=== PATIENT | female | born 1975 | race Caucasian/White ===

== ENCOUNTER 2024-12-23 22:17 | Emergency (ER) | payer MEDICAID, SELFPAY ==
[2024-12-23 22:17] VITALS: BMI 48.4
[2024-12-23 22:55] VITALS: BP 143/90; PULSE 76; RESP 22; TEMP 36.9; O2SAT 98
--- NOTE | 2024-12-23 22:57 | XR_ITS ---
Examination: Abdomen sonogram, Limited Date and time of exam: December 23, 2024 11:55 PM INDICATIONS: Right upper abdominal pain beginning 3 hours ago Technique: Real-time diehl scale transabdominal sonographic images of the upper abdomen obtained. Findings: Normal gallbladder Normal common bile duct 0.4 cm Pancreatic head 2.9 cm Liver 15.5 cm fatty infiltration Normal hepatopedal portal venous flow Patent IVC IMPRESSION: Normal gallbladder
--- NOTE | 2024-12-23 22:57 | PD.EDRME ---
Rapid Medical Screening Exam RME Arrival date/time: 12/23/24 22:17 Chief Complaint: Abdominal Pain Time Seen by Provider: 12/23/24 22:35 Vital signs: Vital Signs Temperature 98.5 F 12/23/24 22:55 Pulse Rate 76 12/23/24 22:55 Respiratory Rate 22 H 12/23/24 22:55 Blood Pressure 143/90 H 12/23/24 22:55 Pulse Oximetry (%) 98 12/23/24 22:55 Oxygen Delivery Method Room Air 12/23/24 22:55 E Narrative: RUQ pain, nausea x2 hours
--- NOTE | 2024-12-23 23:10 | XR_ITS ---
Examination: CT abdomen and pelvis without contrast. Coronal 3-D reconstructions. Sagittal 2-D reconstructions. Date and time of exam:December 24, 2024 0204 hours INDICATIONS: Onset of flank pain today CTDI: vol (mGy): 18.2 DLP: (mGycm): 1146 Technique: Axial images of the abdomen have been obtained, 3 mm slice thickness Intravenous contrast material has not been administered. Low dose protocols were performed. One or more of the following dose reduction techniques were used; automated exposure control, adjustment of the mA and/or KV according to patient size, use of iterative reconstruction technique. Findings: Fatty liver No gallstones Spleen not enlarged No pancreatic or adrenal mass No renal or ureteral calculi, no hydronephrosis Inflamed terminal ileal segment Normal appendix No abdominal or pelvic abscess Anteverted uterus Urinary bladder intact IMPRESSION: Inflamed terminal ileal segment, differential would include enteritis such as Crohn's disease
[2024-12-23 23:30] LABS: Basophils % (Auto) 0 % (0-2.5); Eosinophils # (Auto) 0.1 Thou/mm3 (0.0-0.5); Eosinophils % (Auto) 1 % (0-10); Hematocrit 30.4 % (36.0-46.0); Hemoglobin 10.1 g/dL (12.0-16.0); Immature Granulocytes % (Auto) 0 % (0-0); Immature Granulocytes Auto 0.03 Thou/mm3 (0.00-0.00); Lymphocytes # (Auto) 3.4 Thou/mm3 (1.0-4.8); Lymphocytes % (Auto) 26 % (10-50); Mean Corpuscular HGB Conc 33.2 g/dl (31.0-37.0); Mean Corpuscular Hemoglobin 25.6 pg (25.0-35.0); Mean Corpuscular Volume 77 fL (80-100); Monocytes % (Auto) 7 % (0-12); Neutrophils # (Auto) 8.3 Thou/mm3 (1.8-7.7); Neutrophils % (Auto) 65 % (37-80); Nucleated Red Blood Cell % 0 /100 WBC (0); Platelet Count 296 Thou/mm3 (140-440); RDW Standard Deviation 48.3 fL (36.4-46.3); Red Blood Count 3.94 Miln/mm3 (4.00-5.20); White Blood Count 12.8 Thou/mm3 (3.6-11.0)
[2024-12-23] MEDS: HYDROcodone/APAP 5/325 TABLET 1 TAB PO (23:32)
[2024-12-23] MEDS: ONDANSETRON ODT 4 MG TABRAP PO (23:33)
[2024-12-23 23:53] LABS: Collection Type, Urine Clean Catch
[2024-12-24 00:04] LABS: Bilirubin,Urine Negative (Negative); Blood,Urine Negative (Negative); Clarity,Urine Clear (Clear/Hazy); Glucose, Urine Negative (Negative); Ketones,Urine Negative (Negative); Leukocyte Esterase,Urine Negative (Negative); Nitrite,Urine Negative (Negative); PH,Urine 5.5 (5.0-7.0); Protein,Urine Negative (Neg - Trace); RBC,Urine 2 /hpf (0-3); Specific Gravity,Urine 1.023 (1.001-1.035); Squamous Epithelial Cell,Urine 3 /hpf (0-5); Urobilinogen,Urine Negative mg/dL (0.0-1.0); WBC,Urine 1 /hpf (0-5)
[2024-12-24 00:05] LABS: Color,Urine Yellow (Lt Yel-Yel)
[2024-12-24 00:11] LABS: HCG Qualitative,Urine Negative
[2024-12-24 00:23] LABS: Alanine Aminotransferase 68 U/L (10-49); Albumin, Serum 3.8 gm/dL (3.5-5.0); Albumin/Globulin Ratio 1.4 (1.2-2.2); Alkaline Phosphatase 54 U/L (46-116); Anion Gap 11 (7-16); Aspartate Amino Transferase 43 U/L (0-34); BUN/Creatinine Ratio 23 Ratio (12-20); Bilirubin,Total 0.3 mg/dL (0.3-1.2); Blood Urea Nitrogen 18 mg/dL (9-23); Calcium 8.6 mg/dL (8.3-10.6); Calcium (Corrected) 8.8 mg/dL (8.5-10.1); Carbon Dioxide 28.5 mMol/L (20.0-31.0); Chloride 105 mMol/L (98-107); Creatinine (Component) 0.8 mg/dL (0.6-1.3); Estimated Creatinine Clearance 94.3 mL/min (>60); Globulin 2.7 gm/dL (2.3-3.5); Glucose 113 mg/dL (74-106); Lipase 42 U/L (12-53); Osmolality,Calculated 289 (275-295); Sodium 144 mMol/L (136-145); Total Protein 6.5 gm/dL (5.7-8.2); eGFR > 60 See Note
--- NOTE | 2024-12-24 01:02 | PRELIM_ITS ---
Right upper quadrant abdominal ultrasound. December 23, 2024 at 2355 hours Clinical history: Right upper quadrant pain x2 hours. Technique: Grayscale and color flow images of the right upper quadrant are provided. Hepatic and portal veins were also imaged with color flow images. Comparison: No prior study is available for comparison. Findings: The liver demonstrates heterogenous echotexture with increased echogenicity. No intrahepatic biliary ductal dilatation is demonstrated. The main portal vein measures 1.1 cm and demonstrates hepatopetal flow. No gallbladder calculus, wall thickening or pericholecystic fluid is demonstrated. Sonographic Toscano sign is negative as per the technologist's note. The common bile duct is normal in caliber at 4 mm. The pancreas is unremarkable to the extent visualized. The inferior vena cava is unremarkable to the extent visualized. The abdominal aorta is obscured by bowel gas artifact. Impression: No sonographic evidence of cholelithiasis, acute cholecystitis or biliary obstruction. Diffuse hepatic steatosis. Report Electronically Signed By: Joel Matthews 12/24/2024 1:01:37 AM [EST]
--- NOTE | 2024-12-24 03:29 | PRELIM_ITS ---
CT scan of the abdomen and pelvis without intravenous contrast (axial sections with sagittal and coronal reformats) December 24, 2024 0204 hours Clinical History: Right sided abd pain x2 hours No prior study is available for comparison. Findings: There is mild heterogeneous attenuation of the lower lungs. The liver, gallbladder, pancreas, spleen, kidneys and adrenals are unremarkable on this noncontrast study. No evidence of bowel dilatation. There is mesenteric fat stranding adjacent to the ileal loops in the right mid and lower abdomen.The appendix is within normal limits. The urinary bladder is not well distended. There is no free fluid or free air.There is no adenopathy. A small fat-containing umbilical hernia is present. The osseous structures are unremarkable. Impression: Mesenteric fat stranding adjacent to the ileal loops in the right mid and lower abdomen, nonspecific, in the appropriate clinical setting, mild ileitis cannot be excluded. Mild heterogeneous attenuation of the lower lungs, suggestive of small airways disease. Other findings as described above. Report Electronically Signed By: Anish Pablo 12/24/2024 3:28:43 AM [EST]
--- NOTE | 2024-12-24 05:17 | EDNOTE_ITS ---
ED Abdominal Pain RME/HPI General Chief Complaint: Abdominal Pain Stated complaint: RLQ PAIN Time seen by provider: 12/23/24 22:35 Arrival date/time: 12/23/24 22:17 Source: patient, RN notes reviewed and old records reviewed Mode of arrival: ambulatory Limitations: no limitations RME / HPI RME / HPI narrative: 49yof presents to ED for RUQ abdominal pain x2 hours. Patient c/o nausea but no vomiting. No fever, sob, cp, diarrhea or urinary symptoms reported. 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 Home Medications ?Medication ?Instructions ?Recorded ?Confirmed cetirizine 10 mg tablet 10 mg PO QDAY PRN Allergic S ymptoms 09/01/21 08/25/23 amoxicillin 500 mg capsule 500 mg PO BID 08/25/2308/09 linaclotide 145 mcg capsule 145 mcg PO QAM 08/25/23 (Linzess) turmeric root extract 500 mg 500 mg PO QDAY 08/25/23 0 08/25/23 capsule Previous Rx's ?Medication ?Instructions ?Recorded acetaminophen 500 mg tablet 500 mg PO Q6H PRN pain #30 tabs 12/24/24 (Tylenol Extra Strength) dicyclomine 20 mg tablet 20 mg PO Q6HR PRN abdominal pain 12/24/24 #20 tabs ibuprofen 600 mg tablet 600 mg PO Q6H PRN pain #30 t abs 12/24/24 ondansetron 4 mg disintegrating 4 mg PO Q6H PRN nausea and 12/24/24 tablet vomiting #10 tabs Allergies Allergy/AdvReac Type Severity Reaction Status Date / Time No Known Allergies Allergy Verified 08/26/23 09:36 Review of Systems Review of Systems Systems Reviewed: All systems reviewed, normal except as documented Constitutional Constitutional: Denies fever(s) Cardiovascular Cardiovascular: Denies chest pain and Denies dyspnea Respiratory Respiratory: Denies dyspnea Gastrointestinal Gastrointestinal: Reports abdominal pain, Denies loose stools, Reports nausea and Denies vomiting Genitourinary Genitourinary: Denies dysuria, Denies flank pain and Denies hematuria Past Medical History Past Medical History CARDIAC: Positive Hypertension (STOP 2020) and Varicose Veins (SHAMAR) GASTROINTESTINAL: Positive Gastroesophageal Reflux Disease MUSCULOSKELETAL: Positive Arthritis OTHER HISTORY: Positive Measles and Mumps Family History FAMILY HISTORY: Positive Family Psychiatric Problems (MOTHER ANXIETY AND DEPRESSION) and Family Respiratory Disorders (PNA MOTHER) Surgical History SURGICAL: Positive Tubal Ligation and Section (1999) Social History SMOKING STATUS: Never smoker ED Exam General Limitations: Present no limitations General appearance: Present alert, in no apparent distress and obese Head Head exam: Present atraumatic and normocephalic Eye Eye exam: Present normal appearance, PERRL and EOMI ENT ENT exam: Present normal exam and mucous membranes moist Neck Neck exam: Present normal inspection and full ROM Chest Chest inspection: Present normal inspection and symmetric chest wall rise Respiratory Respiratory exam: Present normal lung sounds bilaterally; Absent respiratory distress Cardiovascular Cardiovascular exam: Present regular rate and normal rhythm Abdominal Exam Abdominal exam: Present soft and tenderness (RUQ, mild); Absent distention, guarding or rebound Extremities Exam Extremities exam: Present normal inspection and full ROM Back Exam Back exam: Absent CVA tenderness (R) or CVA tenderness (L) Neurological Exam Neurological exam: Present alert and oriented X3 Psychiatric Psychiatric exam: Present normal affect and normal mood Skin Skin exam: Present warm, dry and intact Course Quality Measures none Orders Category Date Time Status CT abdomen pelvis wo con Stat Exams 12/23/24 23:10 Completed US gall bladder Stat Exams 12/23/24 22:57 Completed CBC Stat Lab 12/23/24 23:20 Completed CMP [Comprehensive Metabolic Panel] Stat Lab 12/23/24 23:20 Completed HCG Qualitative,Urine Stat Lab 12/23/24 23:43 Completed Lipase Stat Lab 12/23/24 23:20 Completed UA [Urinalysis] Stat Lab 12/23/24 23:43 Completed HYDROcodone*/APAP 5/325 [[place] 5/325] Med 12/23/24 22:58 Discontinued 1 tab PO X1 ONE Ondansetron Odt [Zofran Odt] Med 12/23/24 22:58 Discontinued 4 mg PO X1 ONE Vital Signs Vital signs: Vital Signs Temperature 98.5 F 12/23/24 22:55 Pulse Rate 76 12/23/24 22:55 Respiratory Rate 22 H 12/23/24 22:55 Blood Pressure 143/90 H 12/23/24 22:55 Pulse Oximetry (%) 98 12/23/24 22:55 Oxygen Delivery Method Room Air 12/23/24 22:55 Abdominal Pain MDM MDM Narrative MDM Narrative:: 49yof presents to ED for RUQ abdominal pain x2 hours. Patient c/o nausea but no vomiting. No fever, sob, cp, diarrhea or urinary symptoms reported. 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 Patient updated on labs and imaging. Exam reassuring, non-surgical abdomen. Encouraged close GI follow up if symptoms persist or worsen. Stable for dc, RTED precautions given. Patient data External records reviewed:: [facility] previous records (01/28/22 ED visit for heartburn) Clinical information provided by:: patient Social determinants that could affect healthcare access:: other (specify) (poor access to healthcare) Patient has the following chronic illnesses:: GERD, HTN, obesity How is presenting disease/condition affected by chronic disease/condition?: exacerbated by Evaluation data The following diagnostics were reviewed and interpreted by me:: lab results, radiology exam(s) and EKG tracing(s) Lab and/or radiology exams considered but not ordered:: none Interpretation Summary: mild leukocytosis mild anemia UA -leuks,-nitrites US RUQ: no gallstones per my read Medications / Prescriptions Medications or Prescriptions considered but not ordered:: no antibiotics recommended at this time Medication administrations:: Medication Administration History Discontinued Medications Hydrocodone Bitart/Acetaminophen (Hydrocodone/Apap 5/325 Tablet) 1 tab PO X1 ONE Stop: 12/23/24 22:59 Last Admin: 12/23/24 23:32 Dose: 1 tab Documented By: ROBERTO Ondansetron HCl (Ondansetron Odt 4 Mg Tabrap) 4 mg PO X1 ONE; Protocol Stop: 12/23/24 22:59 Last Admin: 12/23/24 23:33 Dose: 4 mg Documented By: ROBERTO above medications administered in ED Consultations Consultation(s) initiated? (list below): No Diagnosis Differential diagnosis abdominal pain: abdominal pain, acute appendicitis, calculus of kidney, constipation, diverticulitis, gastroenteritis, pancreatitis and small bowel obstruction Most likely diagnosis given after review of the tests above:: Enteritis, abdominal pain Admission Indicated Admission indicated?: not indicated Admission Request Was there a request for admission?: No Disposition Plan Disposition Plan: Discharge Discharge Attestation Discharge Attestation: The patient and all family members were given an opportunity to ask questions and understood the discharge instructions. Discharge instructions specifically effects, indications for sooner follow up or return to the emergency department, and the expected course of current diagnosis. Patient condition: Stable Discharge Plan Plan Patient Disposition: HOME (Self Care) Patient condition on transfer: Stable Prescriptions/Referrals Prescriptions/Med Rec: New ondansetron 4 mg tablet,disintegrating 4 mg PO Q6H PRN (Reason: nausea and vomiting) Qty: 10 0RF ibuprofen 600 mg tablet 600 mg PO Q6H PRN (Reason: pain) Qty: 30 0RF acetaminophen [Tylenol Extra Strength] 500 mg tablet 500 mg PO Q6H PRN (Reason: pain) Qty: 30 0RF dicyclomine 20 mg tablet 20 mg PO Q6HR PRN (Reason: abdominal pain) Qty: 20 0RF No Action cetirizine 10 mg Tablet 10 mg PO QDAY PRN (Reason: Allergic Symptoms) amoxicillin 500 mg Capsule 500 mg PO BID turmeric root extract 500 mg Capsule 500 mg PO QDAY Linzess 145 mcg Capsule 145 mcg PO QAM Referrals: Vinnie Cervantes PA-C [Primary Care Provider] - In 1 week Problem List Clinical Impression: Abdominal pain Patient/Caregiver Discharge Instructions Education Materials: ED Abdominal Pain Unkn Cause Fem Additional Instructions: Follow-up with your primary care physician if your symptoms persist or worsen. They may refer you to see a wire weaving loom setter (GI specialist). Print Language: Micronesian Stand Alone Forms: Stacey Award Info., Patient Portal Info Letter HAN/CHARLEY Supervising Physician YENNI Supervising Physician: Avinash
[2024-12-24 05:36] VITALS: BP 116/78; PULSE 80; RESP 17; TEMP 36.4; O2SAT 95
== END 2024-12-24 05:37 | disposition home or self-care (01) ==
PROVIDERS: Physician Assistant; Emergency Provider Emergency Medicine; PCP Family Medicine
DX: R10.31 Right lower quadrant pain (principal); I10 Essential (primary) hypertension; K21.9 Gastro-esophageal reflux disease without esophagitis
CPT/HCPCS: 36415; 74176; 76705; 80053; 81001; 81025; 83690; 85025; 99284; Q0162; A9270

== ENCOUNTER 2025-01-04 09:40 | Outpatient (AMB) | payer MEDICAID, SELFPAY ==
--- NOTE | 2025-01-04 09:59 | ORTHONT_ITS ---
Vital signs 01/04/25 10:00 Height 1.5 m Height Method Stated Weight 112.207 kg Weight Measurement Method Standing Scale BMI 49.9 BP 130/84 Blood Pressure Source Automatic Cuff Blood Pressure Location Left Upper Arm Position Sitting Respiration 18 Pulse 85 Pulse Source Monitor Temp 96.8 F Temp Source Temporal Artery Scan Pulse Oximetry (%) 99 Oxygen Delivery Method Room Air Med/Allergies Allergies & Medications Allergies No Known Allergies Allergy (Verified 08/26/23 09:36) Medication Reconciliation meclizine 12.5 mg tablet 12.5 mg PO TID PRN 01/04/25 [History Confirmed 01/04/25] meloxicam 7.5 mg tablet 7.5 mg PO QDAY #45 tabs 01/04/25 [Rx] semaglutide (weight loss) 1 mg/0.5 mL subcutaneous pen injector (Wegovy) 1 mg subcut Q7D 01/04/25 [History Confirmed 01/04/25] Exam Exam Breathing is nonlabored. Patient has a normal mood and affect. Bilateral extremities were evaluated and demonstrates sensation intact to light touch. Palpable pedal pulses are present. No significant edema is present. Bilateral hips were examined. The patient has no pain with log roll of the hips. Internal rotation to 30 degrees and external rotation to 30 degrees is painless. Negative FADIR. Left knee was examined today. The left knee is in reasonable alignment. Range of motion from 0-120 degrees. Knee is stable to varus and valgus as well as AP translation with <5mm. Patient has a negative McMurrays. There is no pain with patellofemoral compression and no crepitus noted. The knee is nontender to palpation. The right knee was also examined. The right knee is in varus alignment. Range of motion from 0-115 degrees. Knee is stable to varus and valgus as well as AP translation with <5mm. Patient has a negative McMurrays. There is no pain with patellofemoral compression and no crepitus noted. The knee is tender to palpation medially. An MRI demonstrates mild degenerative changes. The meniscus actually is intact Assessment and Plan Problem List (1) Arthritis of right knee: Status: Acute Plan: Patient is a pleasant 49-year-old female with right knee pain and right knee arthritis. We discussed different treatment options. We would discussed the weight loss and possibly cortisone injections as well as anti-inflammatories. I would like to get weightbearing x-rays. She is at least mild arthritis Office Procedures GNS Level of Care Nursing/Assessment Patient Status: Initial/New Patient Nursing Assessment/Reassesment: Medication Reconciliation, Update PMH in EMR and Vital Signs Coordination of Care: Complex Care and Chronic Disease 1-5, Education Complex Pt/Fam, Consent,records obtained, informed consent, 1 Ins Authorization, Lab and Imaging orders, Results/Orders obtained and Staff clarify orders Special Needs: Language special needs New Patient Charge New Patient Point Assignment: 1124 New Patient Point Charge: DATA STEWARD Level 4 ([id number]) MA Intake Visit Data Collection New Patient or Established: New Patient (never been to [facility]) Reason for Visit:: RIGHT KNEE PAIN Seen by Clinical Staff ONLY (RN/MA): No Nursing Unit Manager Required: Yes PCP or OBGYN visit in last 3 months: Yes Hx Now: No Do You Feel Safe at Home: Yes Authorities Contacted: N/A Questionairres Past Medical History Past Medical History Have you ever been diagnosed with any of the following: Neurological Problems Seizures: No Cardiology Problems Congestive Heart Failure: No Edema: No Cellulitis: No Hypertension: Yes (STOP 2020) Varicose Veins: Yes (SHAMAR) Respiratory Problems Chronic Obstructive Pulmonary Disease (COPD): No Tuberculosis: No Sleep Apnea: No Smoking: No Smoking Exposure: No Stomache/Intestinal Problems Hepatitis: No Colitis: Yes Hiatal Hernia: Yes Hemorrhoids: Yes Gastroesophageal Reflux Disease: Yes Obesity: Yes Genital/Urinary Problems Renal Disease: No Reproductive Problems Previous Pregnancies: Yes Musculoskeletal Problems Arthritis: Yes Endocrine Problems Diabetes Mellitus Type 1: No Diabetes Mellitus Type 2: Yes (prediabetic, no meds) Blood Problems Anemia: Yes Clotting Problems: No Psychologic Problems Depression: No Anxiety: No Other Problems Hospitalization: No Shingles: No Falls: No Blood Transfusions: No Blood Transfusion Reaction: No Anesthesia Reactions: No Organ Transplant: No Chemotherapy: No Radiation Therapy: No Hyperbaric Therapy: No MRSA: No VRSA: No Vancomycin-Resistant Enterococci: No Chicken Pox: Yes Measles: Yes Mumps: Yes Clostridium Difficile: No Cancer: No Surgical History Pacemaker: No Subjective Visit Visit for: new patient and knee (RIGHT) Immunization / Flu Flu Vaccine in the Last 12 Months: No Flu Vaccine Exclusion Criteria: No Exclusion Criteria History of Present Illness Chief complaint: right knee pain Date of injury / onset of symptoms: 3 MONTHS Patient is a morbidly obese 49-year-old female with right knee pain. This knee pain has been ongoing for 3 months. She has not had any conservative treatment. She reports she had an MRI done but no x-ray Pain Pain level (0-10): 8 Pain duration: ALL DAY Pain location: inside (medial), outside (lateral), anterior and posterior Pain quality: dull, aching and burning Pain timing: increases with activity Associated signs & symptoms: none Ambulatory data Ambulatory device: none Treatments Number of previous injections: 0 Improvement with previous injections: No Number of Physical Therapy sessions: 0 Improvement with PT: No Improvement with NSAIDS: no Review of Systems Review of Systems: All systems negative unless otherwise noted in HPI.
[2025-01-04 10:00] VITALS: BP 130/84; PULSE 85; RESP 18; TEMP 36; O2SAT 99; BMI 49.9
--- NOTE | 2025-01-04 10:14 | XR_ITS ---
Examination: Bilateral knees single view PA lateral axial right knee 3 views TECHNIQUE: Bilateral AP knees standing single view Standing PA right knee, standing lateral right knee, axial right knee 3 views total 4 views Date and time: January 04, 2025 1040 hours INDICATIONS: Right knee pain and swelling beginning 3 months ago FINDINGS: Moderate narrowing medial joint space right knee Moderate osteoarthritis lateral patellofemoral joint Widening of the medial patellofemoral joint Small knee effusion No fracture Mild narrowing medial joint space left knee IMPRESSION: Moderate narrowing medial joint space right knee Moderate osteoarthritis lateral patellofemoral joint right knee
== END 2025-01-04 10:22 | disposition home or self-care (01) ==
PROVIDERS: PCP Family Medicine; Referring Provider Family Medicine; Supervising Provider Orthopaedic Surgery Adult Reconstructive Orthopaedic Surgery; Visit Provider Orthopaedic Surgery Adult Reconstructive Orthopaedic Surgery
DX: M17.11 Unilateral primary osteoarthritis, right knee (principal); E66.01 Morbid (severe) obesity due to excess calories; Z68.42 Body mass index [BMI] 45.0-49.9, adult
CPT/HCPCS: 73564; 99204; G0463

== ENCOUNTER 2025-01-23 10:09 | Outpatient (AMB) | payer MEDICAID, SELFPAY ==
[2025-01-23 11:06] VITALS: BP 134/93; PULSE 80; RESP 19; TEMP 36.5; O2SAT 98; BMI 49.2
--- NOTE | 2025-01-23 11:06 | ORTHONT_ITS ---
Vital signs 01/23/25 11:06 Height 1.5 m Height Method Stated Weight 110.875 kg Weight Measurement Method Standing Scale BMI 49.2 BP 134/93 H Blood Pressure Source Automatic Cuff Blood Pressure Location Left Upper Arm Position Sitting Respiration 19 Pulse 80 Pulse Source Monitor Temp 97.7 F Temp Source Temporal Artery Scan Pulse Oximetry (%) 98 Oxygen Delivery Method Room Air Med/Allergies Allergies & Medications Allergies No Known Allergies Allergy (Verified 01/23/25 11:07) Medication Reconciliation meclizine 12.5 mg tablet 12.5 mg PO TID PRN 01/04/25 [History Confirmed 01/23/25] meloxicam 7.5 mg tablet 7.5 mg PO QDAY #45 tabs 01/04/25 [Rx Confirmed 01/23/25] semaglutide (weight loss) 1 mg/0.5 mL subcutaneous pen injector (Wegovy) 1 mg subcut Q7D 01/04/25 [History Confirmed 01/23/25] Office Procedures GNS Level of Care Nursing/Assessment Patient Status: Established Patient Nursing Assessment/Reassesment: Medication Reconciliation, Update PMH in EMR and Vital Signs Coordination of Care: Complex Care and Chronic Disease 1-5, Education Complex Pt/Fam, Consent,records obtained, informed consent, Results/Orders obtained and Staff clarify orders Special Needs: Language special needs Established Patient Charge Established Patient Point Assignment: 95 Established Patient Point Charge: EP Level 3 (80-115) MA Intake Visit Data Collection New Patient or Established: Established Patient (seen at [facility] within 3 years) Reason for Visit:: XRAY RESULTS Seen by Clinical Staff ONLY (RN/MA): No Paper Gluing Operator Required: Yes PCP or OBGYN visit in last 3 months: Yes Hx Now: No Do You Feel Safe at Home: Yes Authorities Contacted: N/A Questionairres Past Medical History Past Medical History Have you ever been diagnosed with any of the following: Neurological Problems Seizures: No Cardiology Problems Congestive Heart Failure: No Edema: No Cellulitis: No Hypertension: Yes (STOP 2020) Varicose Veins: Yes (SHAMAR) Respiratory Problems Chronic Obstructive Pulmonary Disease (COPD): No Tuberculosis: No Sleep Apnea: No Smoking: No Smoking Exposure: No Stomache/Intestinal Problems Hepatitis: No Colitis: Yes Hiatal Hernia: Yes Hemorrhoids: Yes Gastroesophageal Reflux Disease: Yes Obesity: Yes Genital/Urinary Problems Renal Disease: No Reproductive Problems Previous Pregnancies: Yes Musculoskeletal Problems Arthritis: Yes Endocrine Problems Diabetes Mellitus Type 1: No Diabetes Mellitus Type 2: Yes (prediabetic, no meds) Blood Problems Anemia: Yes Clotting Problems: No Psychologic Problems Depression: No Anxiety: No Other Problems Hospitalization: No Shingles: No Falls: No Blood Transfusions: No Blood Transfusion Reaction: No Anesthesia Reactions: No Organ Transplant: No Chemotherapy: No Radiation Therapy: No Hyperbaric Therapy: No MRSA: No VRSA: No Vancomycin-Resistant Enterococci: No Chicken Pox: Yes Measles: Yes Mumps: Yes Clostridium Difficile: No Cancer: No Surgical History Pacemaker: No Subjective Visit Visit for: follow up visit and x-rays Immunization / Flu Flu Vaccine in the Last 12 Months: No Flu Vaccine Exclusion Criteria: No Exclusion Criteria Pain Pain level (0-10): 4 Pain duration: ALL DAY Pain location: anterior Pain quality: aching Pain timing: increases with activity Ambulatory data Ambulatory device: none Treatments Improvement with previous injections: No Improvement with PT: No Improvement with NSAIDS: no Review of Systems Review of Systems: All systems negative unless otherwise noted in HPI.
--- NOTE | 2025-01-23 11:06 | PD.ORTHCLVIS ---
Vital signs 01/23/25 11:06 Height 1.5 m Height Method Stated Weight 110.875 kg Weight Measurement Method Standing Scale BMI 49.2 BP 134/93 H Blood Pressure Source Automatic Cuff Blood Pressure Location Left Upper Arm Position Sitting Respiration 19 Pulse 80 Pulse Source Monitor Temp 97.7 F Temp Source Temporal Artery Scan Pulse Oximetry (%) 98 Oxygen Delivery Method Room Air Med/Allergies Allergies & Medications Allergies No Known Allergies Allergy (Verified 01/23/25 11:07) Medication Reconciliation meclizine 12.5 mg tablet 12.5 mg PO TID PRN 01/04/25 [History Confirmed 01/23/25] meloxicam 7.5 mg tablet 7.5 mg PO QDAY #45 tabs 01/04/25 [Rx Confirmed 01/23/25] semaglutide (weight loss) 1 mg/0.5 mL subcutaneous pen injector (Wegovy) 1 mg subcut Q7D 01/04/25 [History Confirmed 01/23/25] Exam Exam Breathing is nonlabored. Patient has a normal mood and affect. Bilateral extremities were evaluated and demonstrates sensation intact to light touch. Palpable pedal pulses are present. No significant edema is present. Bilateral hips were examined. The patient has no pain with log roll of the hips. Internal rotation to 30 degrees and external rotation to 30 degrees is painless. Negative FADIR. Left knee was examined today. The left knee is in reasonable alignment. Range of motion from 0-120 degrees. Knee is stable to varus and valgus as well as AP translation with <5mm. Patient has a negative McMurrays. There is no pain with patellofemoral compression and no crepitus noted. The knee is nontender to palpation. The right knee was also examined. The right knee is in varus alignment. Range of motion from 0-115 degrees. Knee is stable to varus and valgus as well as AP translation with <5mm. Patient has a negative McMurrays. There is no pain with patellofemoral compression and no crepitus noted. The knee is tender to palpation medially. An MRI demonstrates mild degenerative changes. The meniscus actually is intact Xrays demonstrate moderate arthritis of the right knee Assessment and Plan Problem List (1) Arthritis of right knee: Status: Acute Plan: Patient is a pleasant 49-year-old female with right knee pain and right knee arthritis. We discussed different treatment options. We would discussed the weight loss and possibly cortisone injections as well as anti-inflammatories. We recommend conservative treatment given her body habitus as well as weight loss. Recommend knee cortisone injection as patient would like to proceed with conservative treatment at this time. The risks and benefits of the procedure were reviewed with the patient and patient gave verbal consent to continue with the procedure. Procedure: performed by Dr. Young Using sterile technique the Right knee was thoroughly prepped with alcohol, and approximately 1 cc of Kenalog 40 mg/mL and 4 cc of 1% lidocaine was injected without resistance into the medial tibial femoral joint space. The patient tolerated the procedure. Office Procedures GNS Level of Care Nursing/Assessment Patient Status: Established Patient Nursing Assessment/Reassesment: Medication Reconciliation, Update PMH in EMR and Vital Signs Coordination of Care: Complex Care and Chronic Disease 1-5, Education Complex Pt/Fam, Consent,records obtained, informed consent, Results/Orders obtained and Staff clarify orders Special Needs: Language special needs Established Patient Charge Established Patient Point Assignment: 95 Established Patient Point Charge: EP Level 3 (80-115) Surgical Proc/IM SQ injection Major Surgical Procedure: Yes (knee injection ) Medication Given Medication Given Medication Given: Yes Documented Dose Given: 4 Route: Infiitration Medication Given Medication Given Medication Given: Yes Documented Dose Given: 1 Route: Infiitration Office Meds Xylocaine 10 mg/mL (1 %) injection solution Performing Provider: Jame Young MD Performing Location: [facility] Administered by: Jame Young MD on 01/23/25 11:45 Dose Route Admin Location Dispensed Lot Number Expiration Date [facility] Supervisor [place] 20 mL Infiltration knee 20 mL [id number] 11/08/27 75734-491-44 [facility] triamcinolone acetonide 40 mg/mL suspension for injection Performing Provider: Jame Young MD Performing Location: [facility] Administered by: Jame Young MD on 01/23/25 11:45 Dose Route Admin Location Dispensed Lot Number Expiration Date [facility] Supervisor [place] 40 mg intra-articular RIGHT KNEE 1 mL [id number] 02/06/26 05727-405-47 KERWIN LEW [place] Intake Visit Data Collection New Patient or Established: New Patient (never been to [facility]) Reason for Visit:: RIGHT KNEE PAIN Seen by Clinical Staff ONLY (RN/MA): No 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 PCP or OBGYN visit in last 3 months: Yes Hx Now: No Do You Feel Safe at Home: Yes Authorities Contacted: N/A Questionairres Past Medical History Past Medical History Have you ever been diagnosed with any of the following: Neurological Problems Seizures: No Cardiology Problems Congestive Heart Failure: No Edema: No Cellulitis: No Hypertension: Yes (STOP 2020) Varicose Veins: Yes (SHAMAR) Respiratory Problems Chronic Obstructive Pulmonary Disease (COPD): No Tuberculosis: No Sleep Apnea: No Smoking: No Smoking Exposure: No Stomache/Intestinal Problems Hepatitis: No Colitis: Yes Hiatal Hernia: Yes Hemorrhoids: Yes Gastroesophageal Reflux Disease: Yes Obesity: Yes Genital/Urinary Problems Renal Disease: No Reproductive Problems Previous Pregnancies: Yes Musculoskeletal Problems Arthritis: Yes Endocrine Problems Diabetes Mellitus Type 1: No Diabetes Mellitus Type 2: Yes (prediabetic, no meds) Blood Problems Anemia: Yes Clotting Problems: No Psychologic Problems Depression: No Anxiety: No Other Problems Hospitalization: No Shingles: No Falls: No Blood Transfusions: No Blood Transfusion Reaction: No Anesthesia Reactions: No Organ Transplant: No Chemotherapy: No Radiation Therapy: No Hyperbaric Therapy: No MRSA: No VRSA: No Vancomycin-Resistant Enterococci: No Chicken Pox: Yes Measles: Yes Mumps: Yes Clostridium Difficile: No Cancer: No Surgical History Pacemaker: No Subjective Visit Visit for: new patient and knee (RIGHT) Immunization / Flu Flu Vaccine in the Last 12 Months: No Flu Vaccine Exclusion Criteria: No Exclusion Criteria History of Present Illness Chief complaint: right knee pain Date of injury / onset of symptoms: 3 MONTHS Patient is a morbidly obese 49-year-old female with right knee pain. This knee pain has been ongoing for 3 months. She has not had any conservative treatment. Pain Pain level (0-10): 8 Pain duration: ALL DAY Pain location: inside (medial), outside (lateral), anterior and posterior Pain quality: dull, aching and burning Pain timing: increases with activity Associated signs & symptoms: none Ambulatory data Ambulatory device: none Treatments Number of previous injections: 0 Improvement with previous injections: No Number of Physical Therapy sessions: 0 Improvement with PT: No Improvement with NSAIDS: no Review of Systems Review of Systems: All systems negative unless otherwise noted in HPI.
== END 2025-01-23 11:30 | disposition home or self-care (01) ==
LOC: HODSRG 10:09
PROVIDERS: PCP Family Medicine; Referring Provider Family Medicine; Supervising Provider Orthopaedic Surgery Adult Reconstructive Orthopaedic Surgery; Visit Provider Orthopaedic Surgery Adult Reconstructive Orthopaedic Surgery
DX: M17.11 Unilateral primary osteoarthritis, right knee (principal); M25.561 Pain in right knee; E66.01 Morbid (severe) obesity due to excess calories; Z68.42 Body mass index [BMI] 45.0-49.9, adult; I10 Essential (primary) hypertension
CPT/HCPCS: 20610; 99213; J3301; J3490; G0463

== ENCOUNTER → 2025-05-29 | Outpatient (CLI) | payer MEDICAID, SELFPAY ==
--- NOTE | 2025-05-29 16:21 | XR_ITS ---
Examination: Pelvic ultrasound, transabdominal, complete Technique: Transabdominal ultrasound of the pelvis performed using grayscale imaging Date and time of exam: May 29, 2025, 1631 hours INDICATION: Pelvic cramping irregular menses 20 years FINDINGS: Uterus 11.7 cm Multiple uterine masses, the largest in the fundus 16 x 18 x 20 mm Endometrial stripe 16 mm Right ovary 3.4 cm arterial flow, 18 mm follicular cyst Left ovary 2.9 cm arterial flow IMPRESSION: Multiple uterine masses, the largest in the fundus 16 x 18 x 20 mm, likely areas of fibroid degeneration, recommend transvaginal pelvic sonography follow-up
--- NOTE | 2025-05-29 16:21 | XR_ITS ---
Examination: Transvaginal ultrasound of the pelvis, complete Technique: Transvaginal sonographic images pelvis performed using diehl scale imaging Exam date and time: May 29, 2025, 1640 hours INDICATIONS: Severe menstrual cramping 20 years FINDINGS: Uterus 11.7 cm, images are significantly limited secondary to bowel gas Endometrial stripe 2.2 cm Ovaries obscured by bowel gas. Impression: Study is severely limited secondary to bowel gas Consider MRI pelvis without contrast follow-up to best assess the uterine fundal masses
== END | disposition home or self-care (01) ==
PROVIDERS: PCP Nurse Practitioner Family; Referring Provider Nurse Practitioner Family; Visit Provider Nurse Practitioner Family
DX: R19.09 Other intra-abdominal and pelvic swelling, mass and lump (principal)
CPT/HCPCS: 76830; 76856